=== PATIENT | male | born 1945 ===

== ENCOUNTER → 2024-07-25 09:37 | Outpatient (REF) | payer MEDICARE, SELFPAY | LOC: RAD 09:37 | PROVIDERS: ATTENDING PHYSICIAN Nurse Practitioner Family | DX: R05.3 Chronic cough (principal); Z87.891 Personal history of nicotine dependence | CPT/HCPCS: 71250 ==

== ENCOUNTER → 2025-05-11 17:58 | Outpatient (REF) | payer MEDICARE, SELFPAY | LOC: MRI 3T 17:58 | PROVIDERS: ATTENDING PHYSICIAN Specialist; FAMILY PHYSICIAN Internal Medicine | DX: R97.20 Elevated prostate specific antigen [PSA] (principal) | CPT/HCPCS: 72197; A9575 ==